=== PATIENT | female | born 1960 ===

== ENCOUNTER 2018-01-09 04:30 | Outpatient (CLI) | payer SELFPAY ==
[2018-01-09 07:34] LABS: HEMOGLOBIN A1C 4.9 % (4.5-6.2)
[2018-01-09 08:08] LABS: CHOL/HDL RATIO 3.16 (0.00-4.99)
== END 2018-01-09 23:59 | disposition home or self-care (01) ==
LOC: HW HEART 04:30
DX: Z00.00 Encounter for general adult medical examination without abnormal findings (principal)
CPT/HCPCS: 36415